=== PATIENT | male | born 1955 | race Caucasian/White ===

== ENCOUNTER 2017-07-13 10:20 | Emergency (ER) | payer OTHER ==
[~2017-07-13] VITALS: Ht 167.6 cm; Wt 68.3 kg
[2017-07-13 11:20] VITALS: BP 147/88
== END 2017-07-13 11:20 | disposition home or self-care (01) ==
LOC: ED 10:20
DX: H11.32 Conjunctival hemorrhage, left eye (principal); I10 Essential (primary) hypertension; Z86.79 Personal history of other diseases of the circulatory system